=== PATIENT | female | born 2005 | race Caucasian/White ===

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

== ENCOUNTER 2024-02-14 15:52 | Emergency (ER) | payer OTHER, SELFPAY ==
--- NOTE | 2024-02-14 16:02 | ED.URI ---
HPI - URI/Sore Throat General Chief Complaint: Upper Respiratory Infection Stated Complaint: fever,dizzy,vision blurry,drowsy,CAPUTO Time Seen by Provider: 02/14/24 15:58 Source: patient Mode of arrival: ambulatory Limitations: no limitations History of Present Illness HPI Narrative: Talia is a 18-year-old female patient presenting to the clinic today with complaints of fever, sore throat, dizziness, blurry vision, drowsiness, and headache x 1 week. She reports no nausea, vomiting, or diarrhea. Has called off work 2 days this week and is requesting work note. Has not taken any medications to treat her symptoms MD elicited complaint: fever and other (Headache, dizziness, vision, drowsiness, and headache) Related Data Allergies Allergy/AdvReac Type Severity Reaction Status Date / Time No Known Allergies Allergy Verified 02/14/24 16:08 Review of Systems Review of Systems: Pertinent positives per HPI. Patient denies any fever, chills, rash, shortness of breath, chest pain, palpitations, nausea, vomiting, diarrhea, constipation, abdominal pain, or any urinary issues. PMFSH Past Medical History Medical History Depression Surgical History Surgical History No pertinent past surgical history Social History Social History Smoking status: Current every day smoker Comments At the time of my signature, I reviewed and agree with the nursing past medical, surgical, social, and family history. There is no relevant family history pertinent to the patient complaint. Exam Narrative: General: Well-developed, well nourished, in no apparent distress Head: Normocephalic, atraumatic Eyes: Pupils equally round and reactive to light bilaterally, EOM intact, sclera and conjunctive clear, no discharge, lids normal Ears: TMs intact and clear, ear canals clear, no drainage, grossly hearing normal. Nose: Nares patent, clear nasal discharge, no inflammation, no sinus tenderness. Mouth: Oral pharynx mildly red without lesions or masses, good dentition, MMM. Neck: Supple, trachea midline, no enlargement of anterior or posterior cervical nodes, no thyroid masses or goiter palpable. Cardio: Regular rate and rhythm, s1 and s2 normal, no murmur appreciated. Resp: Clear to auscultation bilaterally, no rhonchi, rales, wheezing or rubs Abdomen: Soft, pliable, nondistended, nontender to palpation, bowel sounds present all 4 quadrants, no organomegaly, no CVAT tenderness Course Course Emergency Course: Portions of this record may have been created with voice recognition software. Level of Care: Express Care Visit Vital Signs Vital signs: Vital Signs Temperature 37.1 C 02/14/24 16:13 Pulse Rate 105 H 02/14/24 16:13 Respiratory Rate 16 02/14/24 16:13 Blood Pressure 120/85 02/14/24 16:13 Pulse Oximetry 99 02/14/24 16:13 Oxygen Delivery Room Air 02/14/24 16:13 Temperature 37.1 C 02/14/24 16:13 Pulse Rate 105 H 02/14/24 16:13 Respiratory Rate 16 02/14/24 16:13 Blood Pressure 120/85 02/14/24 16:13 Pulse Oximetry 99 02/14/24 16:13 Oxygen Delivery Room Air 02/14/24 16:13 Vital signs reviewed MDM - URI/Sore Throat MDM Narrative Medical decision making narrative: At the time of visit patient is resting comfortably on the exam table. Patient appears to be nontoxic. Labs: Strep test was negative in the clinic today. We will send for culture. Urinalysis shows positive leukocytes, blood, and nitrates. Urine bedside test was negative. Plan: I suspect patient has URI pharyngitis/UTI. Prescription for Bactrim was sent to the pharmacy. Supportive measures were discussed with the patient and they voiced understanding discharge instructions and agrees to treatment plan. Return precautions reviewed Different[facility]
[2024-02-14 16:13] VITALS: BP 120/85; PULSE 105; RESP 16; TEMP 37.1; O2SAT 99
[2024-02-14 16:30] LABS: BEDSIDEPREGUCG Negative; EDSTREPNEGPOS1 Negative; EDUAAPPEAR Clear; EDUABILI Negative; EDUABLOOD Trace; EDUACOLOR1 Yellow; EDUAGLUCOSE Negative; EDUAKETONE Negative; EDUALEUKO Trace; EDUANITRATE Positive; EDUAPROTEIN Negative; EDUAUROBILI 0.2
== END 2024-02-14 16:35 | disposition home or self-care (01) ==
PROVIDERS: Emergency Provider Nurse Practitioner Family
DX: N30.01 Acute cystitis with hematuria (principal); B96.20 Unspecified Escherichia coli [E. coli] as the cause of diseases classified elsewhere; J02.9 Acute pharyngitis, unspecified; J06.9 Acute upper respiratory infection, unspecified; F17.200 Nicotine dependence, unspecified, uncomplicated
CPT/HCPCS: 81003; 81025; 87077; 87081; 87086; 87088; 87186; 87880; 99213; G0463

== ENCOUNTER 2024-07-23 11:55 | Emergency (ER) | payer SELFPAY ==
[2024-07-23 12:10] VITALS: BP 128/75; PULSE 77; RESP 16; TEMP 37.1; O2SAT 100
--- NOTE | 2024-07-23 12:18 | ED.FEMALEGU ---
HPI - Female Genitourinary General Chief complaint: Urogenital-Female Stated complaint: sick missed period Time Seen by Provider: 07/23/24 12:46 Source: patient and RN notes reviewed Mode of arrival: ambulatory Limitations: no limitations History of Present Illness HPI Narrative: 18-year-old female presents with concern for not having a menstrual period for 3 months. She reports occasional nausea over the last 3 months and reports 1 episode of vomiting last 3 months. She reports she has taken 2 home tests over the last 3 months that were both negative. She reports some epigastric discomfort that is random. She denies any fever, aches, chills, sweats. Denies any dysuria MD elicited complaint: UTI Related Data Home Medications ?Medication ?Instructions ?Recorded ?Confirmed ?Last Taken ?Type No Home Medications 07/23/24 07/23/24 Unknown History Allergies Allergy/AdvReac Type Severity Reaction Status Date / Time No Known Allergies Allergy Verified 07/23/24 12:11 Review of Systems Review of Systems: CONSTITUTIONAL: Denies malaise, chills, sweats, or fever. CARDIOVASCULAR: Denies chest pain, palpitations, or edema. RESPIRATORY: Denies cough or dyspnea. GASTROINTESTINAL: Denies abdominal pain, diarrhea. Reports nausea 1 episode of vomiting, occasional epigastric discomfort GENITOURINARY: Denies dysuria, frequency, urgency, suprapubic pressure. Denies flank pain or hematuria. Reports 3 missed menstrual cycle SKIN: Denies rash or itching. MUSCULOSKELETAL: Denies back pain or myalgia. All systems reviewed & are unremarkable except as noted in HPI and below PMFSH Past Medical History Medical History Depression Surgical History Surgical History No pertinent past surgical history Social History Social History Smoking status: Current every day smoker Comments At time of signature, agree with nursing past medical, surgical, social and family history. There is no relevant family history pertinent to the presenting complaint Exam Narrative: GENERAL: Well-appearing, well-nourished, and in no acute distress. HEAD: Normocephalic. EYES: PERRLA, conjunctivae clear. NECK: Supple. No lymphadenopathy CHEST: Clear to auscultation. No respiratory distress. HEART: Regular rate and rhythm. ABDOMEN: Soft, nontender upon palpation, nondistended, normal active bowel sounds, no palpable or pulsatile masses, no guarding. No CVA tenderness SKIN: Warm, dry, no rash. NEURO: Alert and oriented x3. PSYCH: Normal mood and affect Course Course Emergency Course: Patient is aware of diagnosis, understands and agrees to treatment plan. Anticipatory guidance given. Patient agrees to follow-up as directed and is aware of reasons to seek care at the emergency department. Portions of this record may have been created with voice recognition software Level of Care: Express Care Visit Vital Signs Vital signs: Vital Signs Temperature 98.7 F 07/23/24 12:10 Pulse Rate 77 07/23/24 12:10 Respiratory Rate 16 07/23/24 12:10 Blood Pressure 128/75 07/23/24 12:10 Pulse Oximetry 100 07/23/24 12:10 Oxygen Delivery Room Air 07/23/24 12:10 Temperature 98.7 F 07/23/24 12:10 Pulse Rate 77 07/23/24 12:10 Respiratory Rate 16 07/23/24 12:10 Blood Pressure 128/75 07/23/24 12:10 Pulse Oximetry 100 07/23/24 12:10 Oxygen Delivery Room Air 07/23/24 12:10 Reviewed. MDM - Female Genitourinary MDM Narrative Medical decision making narrative: Exam findings and UA show no acute concerns or changes; patient is non-toxic appearing and is in no distress. Patient is appropriate for outpatient treatment and follow-up. Differential Diagnosis Differential diagnosis: Likely urinary tract infection and cystitis Critical Care Time Critical Care Time Critical Care Time: No Discharge Plan Discharge Clinical Impression: Missed periods Patient Disposition: Home, Self-Care Condition: Stable Instructions: GERD (Gastroesophageal Reflux Disease) (ED) Additional Instructions: Your urine test is negative, your urinalysis is normal. Take Pepcid daily and omeprazole daily for 2 weeks. Please follow-up at a [facility]'s health facility for further evaluation of your symptoms. There is also information included in this discharge packet for referral for primary care provider for your general health care needs. If you have any urgent concerns please go to the emergency room Patient Language: Maori Prescriptions: No Action No Home Medications Follow-up/Referrals: PHYSICIAN,[facility] [Primary Care Provider] - Time of Disposition: 12:56
[2024-07-23 12:44] LABS: BEDSIDEPREGUCG Negative (Negative); EDUAAPPEAR Cloudy; EDUABILI Negative (Negative); EDUABLOOD Negative (Negative); EDUACOLOR1 Yellow; EDUAGLUCOSE Negative (Negative); EDUAKETONE Negative (Negative); EDUALEUKO Trace (Negative); EDUANITRATE Negative (Negative); EDUAPH 6.5; EDUAPROTEIN Negative (Negative); EDUAUROBILI 0.2
== END 2024-07-23 13:00 | disposition home or self-care (01) ==
PROVIDERS: Emergency Provider Nurse Practitioner
DX: N91.2 Amenorrhea, unspecified (principal)
CPT/HCPCS: 81003; 81025; 87086; 99213; G0463